=== PATIENT | male | born 2000 | race African-American/Black ===

== ENCOUNTER 2019-02-10 19:30 | Emergency (ER) | payer BC ==
[2019-02-10 19:53] VITALS: BP 122/55
--- NOTE | 2019-02-10 20:43 | UC ---
Skin Complaint HPI - HPI Summary HPI Summary: Patient is a 18yo male presenting with complaints of "red, itchy patches" that he states appear randomly all over his body for the past two weeks. States they are worse when sweating or after showering. Also notes that if he brushes up too hard against something, his skin "overreacts." Denies fever, chills, or recent illness. Denies skin problems in the past. Denies new products or foods. Notes seasonal allergies. No history of eczema. Patient also states he would like to be tested for STIs. Denies urinary symptoms, penile burning, discharge, or pain. - History of Current Complaint Chief Complaint: UCSkin Stated Complaint: RASH Hx Obtained From: Patient Onset/Duration: Sudden Onset, Lasting Weeks Current Severity: None Pain Intensity: 0 Pain Scale Used: 0-10 Numeric - Allergy/Home Medications Allergies/Adverse Reactions: Allergies Allergy/AdvReac Type Severity Reaction Status Date / Time No Known Allergies Allergy Verified 02/10/19 19:53 Home Medications: Home Medications diphenhydrAMINE HCl [Allergy Medication] 25 mg PO DAILY 02/10/19 [History Confirmed 02/10/19] PMH/Surg Hx/FS Hx/Imm Hx Previously Healthy: Yes - Surgical History Surgical History: None - Family History Known Family History: Positive: Non-Contributory - Social History Alcohol Use: Weekly Substance Use Type: Marijuana Smoking Status (MU): Never Smoked Tobacco Type: eCigarettes Review of Systems All Other Systems Reviewed And Are Negative: Yes Constitutional: Positive: Negative. Negative: Fever, Chills, Fatigue Skin: Positive: Rash ENT: Positive: Negative Respiratory: Positive: Negative Cardiovascular: Positive: Negative Gastrointestinal: Positive: Negative. Negative: Abdominal Pain Genitourinary: Positive: Negative. Negative: Dysuria, Hematuria, Frequency, Vaginal/Penile Burning, Vaginal/Penile Itching, Vaginal/Penile Discharge, Vaginal/Penile Pain, Vaginal/Penile Tenderness, Ulceration/Lesion Musculoskeletal: Positive: Negative. Negative: Arthralgia Neurological: Positive: Negative Physical Exam Triage Information Reviewed: Yes Appearance: Well-Appearing, No Pain Distress, Well-Nourished Vital Signs: Initial Vital Signs Temp 97.2 F 02/10/19 19:48 Pulse 54 02/10/19 19:48 Resp 16 02/10/19 19:48 BP 122/55 02/10/19 19:48 Pulse Ox 100 02/10/19 19:48 Vital Signs Reviewed: Yes Eyes: Positive: Conjunctiva Clear ENT: Positive: Hearing grossly normal Neck: Positive: Supple Respiratory Exam: Normal Respiratory: Positive: Lungs clear, Normal breath sounds, No respiratory distress Cardiovascular Exam: Normal Cardiovascular: Positive: RRR Neurological: Positive: Alert Psychological: Positive: Age Appropriate Behavior Skin: Positive: Other - mild erythema of bilateral antecubital fossas. area of erythema noted in shape of the rubber bracelet patient had around his wrist. around of erythema noted on anterior neck. no warmth or drainage noted. no induration. no lesions noted. Course/Dx - Course Course Of Treatment: Discussed with patient the use of Benadryl to help relieve itching. Instructed to use medrol dose heather as well for symptom relief. Instructed patient to follow up for further evaluation of skin rash. Patient was tested for G&C today. Refused further STI testing, as he declined bloodwork. Informed him that he would be notified with any positive results. Patient voiced understanding and agreed to treatment plan. - Diagnoses Provider Diagnosis: Rash and nonspecific skin eruption Discharge ED - Sign-Out/Discharge Documenting (check all that apply): Patient Departure All imaging exams completed and their final reports reviewed: No Studies - Discharge Plan Condition: Stable Disposition: HOME Prescriptions: methylPREDNISolone [Medrol] 4 mg PO .SEE HEATHER INSTRUCTION #1 [email or web address] Patient Education Materials: Sexually Transmitted Diseases (ED) Referrals: Reddy Wray MD [Medical Doctor] - As Soon As Possible [facility] PHYSICIAN REFERRAL [Outside] - As Soon As Possible Additional Instructions: As discussed, take the medrol dose pack as prescribed for your rash. Take benadryl over the counter as directed to help relieve itching. This medication may make you drowsy. You were tested for gonorrhea and chlamydia today. You will be notified with any positive results. Follow up with your PCP or the physician referral or activities aide as listed below for further evaluation of your rash. - Billing Disposition and Condition Condition: STABLE Disposition: Home - Attestation Statements Provider Attestation: I was available for consult. This patient was seen by the [facility]. The patient was not presented to, seen by, or examined by me. -Zakiya
[2019-02-12 13:21] LABS: Chlamydia trachomatis NAA Positive (Negative); Neisseria gonorrhoeae (GC) NAA Negative (Negative)
--- NOTE | 2019-02-12 14:25 | UC ---
- Progress Note Progress Note: please call the pt. with his lab results + Chlamydia will call in zithromax to take 1 g po x 1 dose please follow up with his pcp in one week have his partner be seen for treatment Course/Dx - Diagnoses Provider Diagnoses: Rash and nonspecific skin eruption Discharge ED - Sign-Out/Discharge Documenting (check all that apply): Patient Departure All imaging exams completed and their final reports reviewed: No Studies - Discharge Plan Condition: Stable Disposition: HOME Prescriptions: Azithromycin TAB* [Zithromax TAB (Z-HEATHER) 250 mg #6 tabs] 4 tab PO DAILY #4 tab methylPREDNISolone [Medrol] 4 mg PO .SEE HEATHER INSTRUCTION #1 tab.[email or web address] Patient Education Materials: Sexually Transmitted Diseases (ED) Referrals: [facility] [place] PH[facility]ICIAN REFERRAL [Outside] - As Soon As Possible Reddy Wray MD [Medical Doctor] - As Soon As Possible Additional Instructions: As discussed, take the medrol dose pack as prescribed for your rash. Take benadryl over the counter as directed to help relieve itching. This medication may make you drowsy. You were tested for gonorrhea and chlamydia today. You will be notified with any positive results. Follow up with your PCP or the physician referral or film sound coordinator as listed below for further evaluation of your rash. - Billing Disposition and Condition Condition: STABLE Disposition: Home
== END 2019-02-10 21:18 | disposition home or self-care (01) ==
LOC: UCCORT 19:30
DX: R21 Rash and other nonspecific skin eruption (principal)
CPT/HCPCS: 87491; 87591; 99202; G0463